=== PATIENT | female | born 1945 | race Asian ===

== ENCOUNTER → 2019-04-05 | Outpatient (CLI) | payer MEDICARE, OTHER ==
[~2019-04-05] MED LIST: ASPI-556 PO; EXEM25 PO; IOVERSOL 350 MG/ML 150 ML VIAL ONE; METF-960 PO; METHI10 PO; ROSU10TA22 PO; TELM20 PO
== END | disposition home or self-care (01) ==
LOC: RADMN 08:37
PROVIDERS: ATTEND Internal Medicine Interventional Cardiology
DX: I71.4 Abdominal aortic aneurysm, without rupture (principal); K76.89 Other specified diseases of liver; E27.9 Disorder of adrenal gland, unspecified; K57.90 Diverticulosis of intestine, part unspecified, without perforation or abscess without bleeding
CPT/HCPCS: 75635; Q9967

== ENCOUNTER → 2019-04-06 | Outpatient (CLI) | payer MEDICARE, OTHER ==
[~2019-04-06] MED LIST changes: -IOVERSOL 350 MG/ML 150 ML VIAL ONE
== END | disposition home or self-care (01) ==
LOC: RADMN 08:45
PROVIDERS: ATTEND Internal Medicine Interventional Cardiology
DX: E27.8 Other specified disorders of adrenal gland (principal); I71.4 Abdominal aortic aneurysm, without rupture; M47.816 Spondylosis without myelopathy or radiculopathy, lumbar region; K57.30 Diverticulosis of large intestine without perforation or abscess without bleeding
CPT/HCPCS: 74181

== ENCOUNTER → 2019-04-13 | Outpatient (CLI) | payer MEDICARE, OTHER | END | disposition home or self-care (01) | LOC: RADMN 08:30 | PROVIDERS: ATTEND Internal Medicine Interventional Cardiology | DX: M48.02 Spinal stenosis, cervical region (principal); M25.78 Osteophyte, vertebrae; E04.9 Nontoxic goiter, unspecified | CPT/HCPCS: 72141 ==

== ENCOUNTER 2020-03-29 09:09 | Day surgery (SDC) | payer MEDICARE, OTHER ==
[2020-03-27 12:52] LABS: COVID AG,FIA SOURCE NASOPHARYNGEAL
[~2020-03-29] VITALS: Ht 154.9 cm; Wt 60.0 kg
[~2020-03-29 09:09] MED LIST changes: +METH-387 PO; -METHI10 PO; +RINGERS SOLUTION,LACTATED 500 ML IV ONE
[2020-03-29] MEDS ORDERED: POVIDONE-IODINE 10% 15 ML SOLUTION UD TP ONE (09:10)
[2020-03-29] MEDS ORDERED: MIDAZOLAM HCL 2 MG/2 ML VIAL IVP ONE (09:10)
[2020-03-29] MEDS ORDERED: FentaNYL CITRATE-PF 100 MCG/2 ML VIAL IVP ONE (09:10)
[2020-03-29] MEDS ORDERED: RINGERS SOLUTION,LACTATED 500 ML IV ONE (09:25)
[2020-03-29] MEDS ORDERED: TETRACAINE HCL/PF 0.5% 4 ML OPHTHALMIC SOLUTION ONE (09:25)
[2020-03-29] MEDS ORDERED: TETRACAINE HCL/PF 0.5% 4 ML OPHTHALMIC SOLUTION OU ONE (09:30)
[2020-03-29] MEDS ORDERED: 0.9% SODIUM CHLORIDE 10 ML SYRINGE IVP PRN (09:30)
[2020-03-29] MEDS ORDERED: BUPIVACAINE HCL/PF 0.75% 10 ML VIAL ONE (10:18)
[2020-03-29] MEDS ORDERED: NEOMYCIN/POLYMYXIN B/DEXAMETH 3.5 GM OPHTHALMIC OINTMENT ONE (10:31)
[2020-03-29] MEDS ORDERED: HYALURONIDASE, HUMAN RECOMB. 150 UNITS/ML ONE (10:31)
[2020-03-29] MEDS ORDERED: LIDOCAINE 2%/EPI 1:200,000/PF 20 ML VIAL ONE (10:31)
[2020-03-29] MEDS ORDERED: OXYGEN THERAPY IH SCH (11:00)
[2020-03-29] MEDS ORDERED: MEPERIDINE-PF 25 MG/ML VIAL IVP PRN (11:00)
[2020-03-29] MEDS ORDERED: HYDROmorphone 2 MG/ML SYRINGE IVP PRN (11:00)
[2020-03-29] MEDS ORDERED: FentaNYL CITRATE-PF 100 MCG/2 ML VIAL IVP PRN (11:00)
== END 2020-03-29 12:15 | disposition home or self-care (01) ==
LOC: SURGERY 09:09
PROVIDERS: ATTEND Ophthalmology
DX: H02.834 Dermatochalasis of left upper eyelid (principal); H02.831 Dermatochalasis of right upper eyelid; F41.9 Anxiety disorder, unspecified; F32.9 Major depressive disorder, single episode, unspecified; E78.00 Pure hypercholesterolemia, unspecified; I12.9 Hypertensive chronic kidney disease with stage 1 through stage 4 chronic kidney disease, or unspecified chronic kidney disease; E11.22 Type 2 diabetes mellitus with diabetic chronic kidney disease; N18.2 Chronic kidney disease, stage 2 (mild); M19.90 Unspecified osteoarthritis, unspecified site; I25.10 Atherosclerotic heart disease of native coronary artery without angina pectoris; Z79.899 Other long term (current) drug therapy; Z20.828 Contact with and (suspected) exposure to other viral communicable diseases; Z95.5 Presence of coronary angioplasty implant and graft; Z98.890 Other specified postprocedural states
CPT/HCPCS: 15822; 87426; 93005; C9803; J2250; J3010; J3473; J3490; J7120